=== PATIENT | male | born 1975 | race Caucasian/White ===

== ENCOUNTER 2021-07-26 15:52 | Emergency (ER) | payer MEDICAID ==
[2021-07-26 15:55] VITALS: BP 152/96; PULSE 67
[2021-07-26 16:19] LABS: CHLORIDE,CL 102 mEq/L (98-106); SODIUM,NA 142 mEq/L (136-145)
--- NOTE | 2021-07-26 16:33 | EDM.PDOC ---
ED HPI GENERAL MEDICAL PROBLEM - General Chief Complaint: General Stated Complaint: Chest Pain Time Seen by Provider: 07/26/21 16:00 Source of Information: Reports: Patient History Limitations: Reports: No Limitations - History of Present Illness INITIAL COMMENTS - FREE TEXT/NARRATIVE: Moses is a 46 year old male who presents to ER with complaints of right arm numbness and tingling and tightness in his chest. 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 Noted his right arm begin to get numb and felt like it wouldn't work as well as it should. Was worried about a stroke or heart attack. States discussed it with his coworker and got in to an argument. Admits that enroute here started to get more anxious and upset. Noted increased numbness and tingling in both arms and his feet. Does admit he was breathing hard and felt chest tightness. No nausea. No diaphoresis. Is currently on Keflex and oxycodone for an infection in his hand. States is seeing improvement in that. No history of UT or HTN. Onset: Today, Sudden Duration: Minutes:, Constant Location: Reports: Chest, Upper Extremity, Right, Generalized Quality: Reports: Other (numb and tingling in right arm, chest tightness after "getting worked up and worrying about a stroke") - Related Data Allergies Allergy/AdvReac Type Severity Reaction Status Date / Time No Known Allergies Allergy Verified 07/26/21 15:58 Home Meds: Home Meds cephALEXin [Keflex] 500 mg PO Q8H 07/26/21 [History] oxyCODONE 5 mg PO TID PRN 07/26/21 [History] Past Medical History Respiratory History: Reports: Asthma - Past Surgical History Musculoskeletal Surgical History: Reports: Other (See Below) Other Musculoskeletal Surgeries/Procedures:: FINGER SURGERY FOR ABSCESS Social & Family History - Family History Family Medical History: No Pertinent Family History - Tobacco Use Tobacco Use Status *Q: Current Every Day Tobacco User Years of Tobacco use: 20 Packs/Tins Daily: 0.5 - Caffeine Use Caffeine Use: Reports: None - Recreational Drug Use Recreational Drug Use: No ED ROS GENERAL - Review of Systems Review Of Systems: See Below Constitutional: Denies: Fever, Chills, Malaise, Weakness, Fatigue HEENT: Denies: Ear Pain, Sinus Problem, Throat Pain, Vertigo, Vision Change Respiratory: Denies: Shortness of Breath Cardiovascular: Reports: Chest Pain. Denies: Edema, Lightheadedness Endocrine: Denies: Fatigue GI/Abdominal: Denies: Abdominal Pain, Constipation, Diarrhea, Nausea, Vomiting : Reports: No Symptoms Musculoskeletal: Reports: No Symptoms Neurological: Reports: Numbness, Tingling Psychiatric: Reports: Anxiety ED EXAM, GENERAL - Physical Exam Exam: See Below Exam Limited By: No Limitations General Appearance: Alert, WD/WN, Mild Distress Ears: Normal External Exam, Normal TMs Nose: Normal Inspection, Normal Mucosa, No Blood Throat/Mouth: Normal Inspection, Normal Oropharynx Head: Normocephalic Neck: Normal Inspection, Supple, Non-Tender Respiratory/Chest: No Respiratory Distress, Lungs Clear, Normal Breath Sounds Cardiovascular: Regular Rate, Rhythm GI/Abdominal: Normal Bowel Sounds, Soft, Non-Tender Back Exam: Normal Inspection, Full Range of Motion Extremities: Normal Inspection, Other (tenderness and muscle spasms noted to the right trapezius. good range of motion of his right shoulder. Good strengths noted to his right arm. ) Psychiatric: Anxious (anxious on presentation to ER but relaxes after assessment and evaluation) Skin Exam: Warm, Dry Course - Vital Signs Last Recorded V/S: Last Vital Signs Temp 98.1 F 07/26/21 15:53 Pulse 67 07/26/21 15:53 Resp 22 H 07/26/21 15:53 BP 152/96 H 07/26/21 15:53 Pulse Ox 95 07/26/21 15:53 - Orders/Labs/Meds Orders: Active Orders 24 hr Category Date Time Status Chest 2V [CR] Stat Exams 07/26/21 15:52 Taken Head wo Cont [CT] Stat Exams 07/26/21 15:58 Taken DRUG SCREEN URINE BIORAD [URCHEM] Stat Lab 07/26/21 15:58 Ordered UA RFX MEHNAZ AND CULT IF INDIC [URIN] Stat Lab 07/26/21 15:58 Ordered Labs: Laboratory Tests 07/26/21 07/26/21 07/26/21 Range/Units 15:52 15:52 16:21 WBC 15.0 H (4.0-11.0) 10^3/uL RBC 4.77 (4.50-6.00) x10^6/uL Hgb 14.5 (14.0-18.0) g/dL Hct 42.8 (42.0-52.0) % MCV 89.7 (83.0-97.0) fL MCH 30.4 (27.0-32.0) pg MCHC 33.9 (32.0-36.0) g/dL RDW Coeff of Apolinar 12.3 (11.0-15.0) % Plt Count 335 (150-400) 10^3/uL Immature Gran % (Auto) 0.5 (0.0-4.9) % Neut % (Auto) 84.2 H (41-71) % Lymph % (Auto) 9.0 L (24-44) % [place] % (Auto) 4.9 (0-10) % Eos % (Auto) 0.5 (0-6) % Baso % (Auto) 0.9 (0-1) % Neut # (Auto) 12.59 H (1.80-8.00) x10^3/uL Lymph # (Auto) 1.35 (0.60-5.00) 10^3/uL [place] # (Auto) 0.74 (0.00-1.50) 10^3/uL Eos # (Auto) 0.07 (0.00-1.50) 10^3/uL Baso # (Auto) 0.14 (0.00-0.50) 10^3/uL Immature Gran # (Auto) 0.07 (0.00-0.49) 10^3/uL Sodium 142 (136-145) mEq/L Potassium 3.6 (3.5-5.0) mEq/L Chloride 102 (98-106) mEq/L Carbon Dioxide 26 (21-32) mmol/L BUN 17 (7-18) mg/dL Creatinine 1.0 (0.7-1.3) mg/dL Est Cr Clr Drug Dosing 84.95 mL/min Estimated GFR (MDRD) > 60 (>=60) mL/min Glucose 129 H (75-99) mg/dL Calcium 9.7 (8.4-10.1) mg/dL Magnesium 1.8 (1.8-2.4) mg/dL Total Bilirubin 0.4 (0.0-1.0) mg/dL AST 20 (15-37) U/L ALT 22 (12-78) U/L Alkaline Phosphatase 81 (46-116) U/L Troponin I High Sens 5.7 (<=76) pg/mL C-Reactive Protein 14.0 H (0.2-0.8) mg/dL Total Protein 7.8 (6.4-8.2) g/dL Albumin 4.3 (3.4-5.0) g/dL - Re-Assessments/Exams Free Text/Narrative Re-Assessment/Exam: 07/26/21 16:30 EKG shows sinus rhythm. Labs unremarkable. Head CT done. Questioned patient about getting urine and refuses. Stands up and removes monitor and states will not do a UA and states "we know it was just an anxiety attack and my shoulder is tense". Advised needed to wait for CT of head but refused. Signed out AMA Departure - Departure Time of Disposition: 16:43 Disposition: Against Medical Advice 07 Condition: Good Clinical Impression: Anxiety, Muscle spasm - Discharge Information *PRESCRIPTION DRUG MONITORING PROGRAM REVIEWED*: No *COPY OF PRESCRIPTION DRUG MONITORING REPORT IN PATIENT XAVI: No Referrals: PCP,None [Primary Care Provider] - Forms: ED Department Discharge Sepsis Event Note (ED) - Evaluation Sepsis Screening Result: No Definite Risk - Focused Exam Vital Signs: Vital Signs Temp Pulse Resp BP Pulse Ox 07/26/21 15:53 98.1 F 67 22 H 152/96 H 95 - My Orders Last 24 Hours: My Active Orders 07/26/21 15:52 Chest 2V [CR] Stat 07/26/21 15:58 Head wo Cont [CT] Stat DRUG SCREEN URINE BIORAD [URCHEM] Stat UA RFX MEHNAZ AND CULT IF INDIC [URIN] Stat - Assessment/Plan Last 24 Hours: My Active Orders 07/26/21 15:52 Chest 2V [CR] Stat 07/26/21 15:58 Head wo Cont [CT] Stat DRUG SCREEN URINE BIORAD [URCHEM] Stat UA RFX MEHNAZ AND CULT IF INDIC [URIN] Stat
== END 2021-07-26 16:47 | disposition left against medical advice (07) ==
LOC: CC.ED 15:52
DX: F41.9 Anxiety disorder, unspecified (principal); M62.838 Other muscle spasm; J45.909 Unspecified asthma, uncomplicated; Z72.0 Tobacco use
CPT/HCPCS: 36415; 70450; 71046; 80053; 83735; 84484; 85025; 86140; 99285-25